=== PATIENT | female | born 1955 | race Caucasian/White ===

== ENCOUNTER 2019-01-02 07:21 | Day surgery (SDC) | payer MEDICARE, BC ==
[~2019-01-02 07:21] MED LIST: Lactated Ringers 1,000 ML IV SCH; Sodium Chloride 0.9% 10 ML Syringe FLUSH PRN
[2019-01-02] MEDS ORDERED: Propofol 200 MG/20 ML SDV ONE ×2 (07:49→09:13)
[2019-01-02] MEDS ORDERED: fentaNYL 100 MCG/2 ML SDV ONE (07:49)
--- NOTE | 2019-01-02 11:11 | OR ---
PREOPERATIVE DIAGNOSIS: Dysphagia. POSTOPERATIVE DIAGNOSIS: Significant antritis with superficial ulcerations. PROCEDURE PROPOSED: Upper gastrointestinal panendoscopy. PROCEDURE DONE: Upper gastrointestinal panendoscopy with antral and duodenal biopsies. INDICATION: This is a 63-year-old female with dyspepsia symptoms, takes on and off omeprazole, but not on a regular basis. She does not drink excessive caffeine or alcohol and is felt that she should be gastroscoped to rule out significant pathology. She does have a known history of hiatal hernia diagnosed on a previous EGD about 8 years ago. TECHNIQUE: The patient was brought to the endoscopy suite, placed in left lateral decubitus position. She was sedated per [employer] with propofol. The flexible gastroscope was then passed transorally, and under visualization, advanced well into the duodenum. The duodenum and duodenal bulb were basically unremarkable. The pre-pyloric antral region, however, did reveal moderate amount of inflammation and she had 1 small punctate ulceration that was actually oozing slight amount of blood. A couple of biopsies were taken from the duodenum as well as from the antrum. The body of the stomach otherwise looked quite healthy. There were a couple proximal gastric nodules compatible with a chronic gastritis. The GE junction did not reveal any significant hiatal hernia or active GERD or Schatzki ring or stenosis and the remainder of the esophagus was normal. The scope was then withdrawn. She tolerated the procedure well. FINAL IMPRESSION: Significant antritis with superficial ulceration. PLAN: Pantoprazole 40 mg daily for 8 weeks. She needs to watch the caffeine, alcohol, ibuprofen, and Aleve consumption and follow up with Alison Chin as needed. SCM: 01/02/2019 09:41:29 MODL: 01/02/2019 11:06:43 /[id number]
--- NOTE | 2019-01-02 11:17 | OR ---
PREOPERATIVE DIAGNOSIS: Screening colonoscopy. POSTOPERATIVE DIAGNOSIS: Hyperplastic nodules in the rectum, 3 removed. PROCEDURE PROPOSED: Total flexible colonoscopy. PROCEDURE DONE: Total flexible colonoscopy with polypectomy x3. INDICATIONS: This is a 63-year-old female, who comes in for screening colonoscopy. Her last examination was 10 years ago. She denies any symptomatology and she has a negative family history for colon cancer. TECHNIQUE: She was already in the endoscopy suite, repositioned for the colonoscopy. She was further sedated per [employer] with propofol. The flexible video colonoscope was then passed transanally, and under visualization, advanced to the cecum. Examination revealed normal ascending, transverse, descending colon. The sigmoid colon revealed some sigmoid diverticulosis, and in the rectum at about 10 cm, there were some hyperplastic nodules and 3 of them were removed with cold biopsy forceps technique and submitted for pathologic examination and the remainder of the rectum was normal. The scope was then withdrawn. She tolerated the procedure well. FINAL IMPRESSION: 1. Sigmoid diverticulosis. 2. Rectal hyperplastic nodules x3, removed. PLAN: She will be sent a letter with pathology report, but she likely can wait 10 years before she needs a repeat colonoscopy. SCM: 01/02/2019 09:41:29 MODL: 01/02/2019 11:08:51 /[id number]
[2019-01-03] MEDS ORDERED: Lactated Ringers 1,000 ML IV SCH (07:00)
== END 2019-01-02 11:00 | disposition home or self-care (01) ==
LOC: VM.SDS 07:21
PROVIDERS: ATTEND Surgery
DX: K29.60 Other gastritis without bleeding (principal); K25.9 Gastric ulcer, unspecified as acute or chronic, without hemorrhage or perforation; Z12.11 Encounter for screening for malignant neoplasm of colon; K62.1 Rectal polyp; K57.30 Diverticulosis of large intestine without perforation or abscess without bleeding; K21.9 Gastro-esophageal reflux disease without esophagitis; Z87.891 Personal history of nicotine dependence; Z79.899 Other long term (current) drug therapy
CPT/HCPCS: 88305; J2704; J3010; J7120

== ENCOUNTER 2023-10-05 01:35 | Emergency (ER) | payer MEDICARE, BC ==
[2023-10-05] MEDS ORDERED: Aspirin 81 MG Tab.Chew PO ONE (02:00)
[2023-10-05 02:11] VITALS: BP 165/92; PULSE 84
[2023-10-05] MEDS ORDERED: Alum Hydroxide/Mag Hydroxide 30 ML, Lidocaine 2% 15 ML PO ONE ×2 (02:12)
[2023-10-05 02:13] LABS: BASOPHILS PERCENT AUTO 0.2 % (0.2-1.2); EOSINOPHILS ABSOLUTE AUTO 0.1 x10^3/uL (0.0-0.5); EOSINOPHILS PERCENT AUTO 1.3 % (0.0-4.0); HEMATOCRIT 37.4 % (33.0-47.0); LYMPHOCYTES PERCENT AUTO 43.5 % (25.0-50.0); MEAN CORPUSCULAR HEMOGLOBIN 32.3 pg (26.0-32.0); MEAN CORPUSCULAR HGB CONC 34.8 g/dL (32.0-36.0); MONOCYTES ABSOLUTE AUTO 0.6 x10^3/uL (0.0-0.8); MONOCYTES PERCENT AUTO 11.9 % (2.0-11.0); NEUTROPHILS PERCENT AUTO 43.1 % (50.0-80.0); PLATELET COUNT,PLT 190 x10^3/uL (130-400); RED BLOOD CELL COUNT 4.02 x10^6/uL (4.00-5.50); WHITE BLOOD CELL COUNT,WBC 4.6 x10^3/uL (4.0-10.0)
[2023-10-05 02:34] LABS: A/G RATIO 0.97; ALBUMIN 3.6 g/dL (3.4-5.0); BILIRUBIN TOTAL 0.4 mg/dL (0.2-1.0); CALCIUM 8.6 mg/dL (8.5-10.1); CREATININE 0.7 mg/dL (0.55-1.02); EST CRCL DRUG DOSING (CG) 70.68 mL/min; POTASSIUM,K 3.4 mmol/L (3.5-5.1); PROTEIN TOTAL,TP 7.3 g/dL (6.4-8.2)
[2023-10-05] MEDS ORDERED: Aluminum Hydroxide/Magnesium Hydroxide/Simethicone Susp 30 ML Cup PO ONE (02:34)
[2023-10-05] MEDS ORDERED: Lidocaine 2% Viscous Solution 15 ML UD PO ONE (02:34)
[2023-10-05 02:37] LABS: ANION GAP 16.4 mmol/L (5-15)
== END 2023-10-05 03:15 | disposition home or self-care (01) ==
LOC: VM.ED 01:35
DX: K21.9 Gastro-esophageal reflux disease without esophagitis (principal); Z90.49 Acquired absence of other specified parts of digestive tract; Z79.899 Other long term (current) drug therapy
CPT/HCPCS: 36415; 71045; 80053; 83880; 84484; 85025; 93005; 99285; A9270-GY